=== PATIENT | female | born 1970 | race Caucasian/White ===

== ENCOUNTER 2017-08-15 00:31 | Emergency (ER) | payer OTHER ==
[~2017-08-15] VITALS: Ht 165.1 cm; Wt 93.0 kg
[2017-08-15 00:36] VITALS: BP 146/90
[2017-08-15 02:34] LABS: EOSINOPHIL (%) 1.7 % (0-5); EOSINOPHIL COUNT 0.1 K/uL (0-0.3); HEMATOCRIT 36.9 % (36.0-46.0); IMMATURE GRANULOCYTE (%) 0.6 % (0.0-0.7); INSTRUMENT ABS NEUTROPHIL CT 4.1 K/uL; LYMPHOCYTE COUNT 2.1 K/uL (1.0-2.8); MCH 27.4 PG (29.0-34.0); MCHC 33.3 G/DL (30.0-36.0); MCV 82.2 FL (83-99); MONOCYTE (%) 7.3 % (3-12); MONOCYTE COUNT 0.5 K/uL (0-0.8); NEUTROPHIL (%) 60.1 % (45-76); NEUTROPHIL COUNT 4.1 K/uL (1.8-6.4); PLATELET COUNT 147 K/uL (156-360); RBC DIS.WIDTH-CV 13.2 % (11.8-14.6); RBC DIS.WIDTH-SD 39.3 % (39-53); RED BLOOD COUNT 4.49 M/uL (3.80-5.20); WHITE BLOOD COUNT 6.9 K/uL (4.1-10.2)
[2017-08-15 02:42] LABS: INTER. NORMALIZED RATIO 1.1
[2017-08-15 02:44] LABS: CHLORIDE 97 mEq/L (99-109); POTASSIUM 3.7 mEq/L (3.7-5.4); SODIUM 138 mEq/L (136-147)
[2017-08-15 02:45] LABS: GLUCOSE 252 mg/dL (70-99); PTT 30.2 SEC (25-37)
[2017-08-15 02:47] LABS: ANION GAP 10 MEQ/L (2-14)
[2017-08-15 02:49] LABS: GFR ESTIMATE (CALCULATED) > 59 mL/min/
[2017-08-15 02:50] LABS: UREA NITROGEN (BUN) 9 mg/dL (9-23)
[2017-08-15 02:59] LABS: QUANTITATIVE HCG < 4.0 MIU/ML
== END 2017-08-15 03:54 | disposition home or self-care (01) ==
LOC: EME → EDBD 00:31 → EME 00:31
PROVIDERS: Emergency Medicine
DX: N93.9 Abnormal uterine and vaginal bleeding, unspecified (principal); R93.8 Abnormal findings on diagnostic imaging of other specified body structures; M19.90 Unspecified osteoarthritis, unspecified site; K21.9 Gastro-esophageal reflux disease without esophagitis; E11.9 Type 2 diabetes mellitus without complications; F17.200 Nicotine dependence, unspecified, uncomplicated
CPT/HCPCS: 76856; 80048; 84702; 85025; 85610; 85730; 86850; 86900; 86901; 99281; 99284

== ENCOUNTER 2017-11-11 10:53 | Inpatient (IN) | payer OTHER ==
[~2017-11-11] VITALS: Ht 162.6 cm; Wt 88.0 kg
[~2017-11-11 10:53] MED LIST: GLUCOPHAGE500 MG PO; METHADONE H5 MG/5 ML PO
[2017-11-29] MEDS ORDERED: VICTOZA 2-0.6 MG/0.1 SC (09:13)
[2017-12-02] MEDS ORDERED: RANITIDINE HCL150 M1 PO (12:12)
[2017-12-02] MEDS ORDERED: FLEXERIL10 MG PO (12:13)
[2017-12-02 12:36] VITALS: BP 140/80
[2017-12-02 20:24] VITALS: BP 157/79
[2017-12-02 20:57] LABS: HEMATOCRIT 38.3 % (36.0-46.0); HEMOGLOBIN 12.8 G/DL (11.9-15.5); MCH 26.8 PG (29.0-34.0); MCHC 33.4 G/DL (30.0-36.0); MCV 80.3 FL (83-99); PLATELET COUNT 137 K/uL (156-360); RBC DIS.WIDTH-CV 13.1 % (11.8-14.6); RBC DIS.WIDTH-SD 37.4 % (39-53); RED BLOOD COUNT 4.77 M/uL (3.80-5.20); WHITE BLOOD COUNT 9.8 K/uL (4.1-10.2)
[2017-12-02 21:18] LABS: CHLORIDE 95 MEQ/L (99-109); CREATININE 0.5 MG/DL (0.6-1.3); GFR ESTIMATE (CALCULATED) > 59 mL/min/; GLUCOSE 173 mg/dL (70-99); POTASSIUM 3.8 MEQ/L (3.7-5.4); SODIUM 133 MEQ/L (136-147); UREA NITROGEN (BUN) 10 mg/dL (9-23)
[2017-12-02 23:27] VITALS: BP 148/75
[2017-12-03 03:42] VITALS: BP 170/82
[2017-12-03 06:58] LABS: HEMATOCRIT 40.6 % (36.0-46.0); HEMOGLOBIN 13.5 G/DL (11.9-15.5); MCH 26.3 PG (29.0-34.0); MCHC 33.3 G/DL (30.0-36.0); MCV 79.1 FL (83-99); PLATELET COUNT 169 K/uL (156-360); RBC DIS.WIDTH-CV 12.9 % (11.8-14.6); RBC DIS.WIDTH-SD 36.4 % (39-53); RED BLOOD COUNT 5.13 M/uL (3.80-5.20); WHITE BLOOD COUNT 8.4 K/uL (4.1-10.2)
[2017-12-03 07:00] VITALS: BP 151/99
[2017-12-03 07:28] LABS: CHLORIDE 97 MEQ/L (99-109); CREATININE 0.5 MG/DL (0.6-1.3); GFR ESTIMATE (CALCULATED) > 59 mL/min/; GLUCOSE 154 mg/dL (70-99); POTASSIUM 3.7 MEQ/L (3.7-5.4); SODIUM 136 MEQ/L (136-147); UREA NITROGEN (BUN) 9 mg/dL (9-23)
[2017-12-03 17:17] VITALS: BP 139/88
[2017-12-03 20:25] VITALS: BP 113/74
[2017-12-04 00:07] VITALS: BP 110/80
[2017-12-04 04:01] VITALS: BP 108/78
[2017-12-04 06:48] LABS: HEMATOCRIT 38.2 % (36.0-46.0); HEMOGLOBIN 12.4 G/DL (11.9-15.5); MCH 26.3 PG (29.0-34.0); MCHC 32.5 G/DL (30.0-36.0); MCV 81.1 FL (83-99); PLATELET COUNT 157 K/uL (156-360); RBC DIS.WIDTH-CV 13.2 % (11.8-14.6); RBC DIS.WIDTH-SD 39.3 % (39-53); RED BLOOD COUNT 4.71 M/uL (3.80-5.20); WHITE BLOOD COUNT 10.6 K/uL (4.1-10.2)
[2017-12-04 07:19] LABS: CHLORIDE 94 MEQ/L (99-109); CREATININE 0.7 MG/DL (0.6-1.3); GFR ESTIMATE (CALCULATED) > 59 mL/min/; GLUCOSE 212 mg/dL (70-99); POTASSIUM 3.5 MEQ/L (3.7-5.4); SODIUM 133 MEQ/L (136-147)
[2017-12-04 07:20] LABS: UREA NITROGEN (BUN) 21 mg/dL (9-23)
[2017-12-04 09:11] VITALS: BP 110/68
== END 2017-12-04 11:24 | disposition home or self-care (01) | DRG 741 ==
LOC: 2SOUTH → ENRESERV 12-01 22:10 → 2SOUTH 12-02 09:02 → ENRESERV 12-02 16:37 → 2EAST 12-02 20:18
PROVIDERS: Obstetrics & Gynecology Gynecologic Oncology
DX: C54.1 Malignant neoplasm of endometrium (principal); E11.9 Type 2 diabetes mellitus without complications; K59.00 Constipation, unspecified; E66.9 Obesity, unspecified; Z68.33 Body mass index [BMI] 33.0-33.9, adult; Z87.891 Personal history of nicotine dependence; Z80.3 Family history of malignant neoplasm of breast; Z80.1 Family history of malignant neoplasm of trachea, bronchus and lung; Z80.49 Family history of malignant neoplasm of other genital organs
CPT/HCPCS: 36415; 80048; 82948; 85027; 86850; 86900; 86901; 86920; 88305; 88309; 90686; J0131; J0690; J1100; J1170; J1650; J1815; J1885; J2250; J2405; J2550; J2710; J2765; J3010; J7120